=== PATIENT | female | born 1980 | race Caucasian/White ===

== ENCOUNTER 2016-09-29 12:42 | Emergency (ER) | payer OTHER ==
--- NOTE | 2016-09-29 12:55 | ERPHSYRPT ---
- History of Present Illness Historian: patient Exam Limitations: no limitations Patient Subjective Stated Complaint: "i started having cp about 1 hr ago that comes and goes. it feels like a pressure in my chest. i felt like i was getting a migraine on my way here." Triage Nursing Assessment: aox3, breathing easy unlabored,skin pink warm dry, steady gait, able to speak in cmoplete setences Physician History: Patient started to have migraine headache earlier this morning felt kind of weak and dizzy with some photophobia and that work started to have some intermittent sharp chest pain that went away and then had return photophobia and intermittent scotoma on the right consistent with her previous history of migraine headaches. Some mild nausea no vomiting. Did not take any of her migraine medication at this time but did take migraine medicine 5 days ago. She has had complete neurologic workup for migraines in the past. Has no history of cardiac disease hypertension DVT pulmonary embolism and had no shortness of breath with the associated chest pain which is totally resolved at this time. No recent chest injuries. Timing/Duration: today Activities at Onset: none Quality: sharpness, stabbing Location: central Chest Pain Radiation: no radiation Severity of Pain-Max: moderate Severity of Pain-Current: none Modifying Factors: Improves With: nothing Associated Symptoms: nausea Prior Chest Pain/Cardiac Workup: no prior chest pain, no prior cardiac workup Nitro Today/Relief: no nitro taken today Aspirin Treatment Today: 81 mg x 4, provided by ED Allergies/Adverse Reactions: No Known Drug Allergies Allergy (Verified 09/29/16 12:50) Home Medications: Rizatriptan Benzoate [Maxalt Pad Extraction Tender] 10 mg PO PRN 10/07/13 [History] Hx Tetanus, Diphtheria Vaccination/Date Given: No Hx Influenza Vaccination/Date Given: Yes (2012) Hx Pneumococcal Vaccination/Date Given: No Immunizations Up to Date: Yes - Review of Systems Constitutional: No Symptoms Eyes: Photophobia Ears, Nose, & Throat: No Symptoms Respiratory: No Symptoms Cardiac: No Symptoms Abdominal/Gastrointestinal: Nausea Genitourinary Symptoms: No Symptoms Musculoskeletal: No Symptoms Skin: No Symptoms Neurological: Headache, Lethargy Psychological: Anxiety, No Suicidal Ideations, No Homicidal Ideations Endocrine: No Symptoms Hematologic/Lymphatic: No Symptoms Immunological/Allergic: No Symptoms All Other Systems: Reviewed and Negative - Past Medical History Pertinent Past Medical History: Yes Neurological History: Migraines Musculoskeletal History: Fibromyalgia Other Medical History: OCCIPATAL NEURALGA - Past Surgical History Past Surgical History: Yes Female Surgical History: Other Other Surgical History: Ablasion - Social History Smoking Status: Never smoker Exposure to second hand smoke: No Drug Use: none Patient Lives Alone: No - Female History Hx Now: No - Nursing Vital Signs Pain Intensity: 0 - Physical Exam General Appearance: mild distress, alert, anxiety Eye Exam: PERRL/EOMI Ears, Nose, Throat Exam: TMs normal, pharynx normal, other (palpable tenderness over the right frontal temporal area reproducing pain syndrome) Neck Exam: normal inspection, non-tender, supple, full range of motion Respiratory Exam: normal breath sounds, lungs clear, No chest tenderness Cardiovascular Exam: regular rate/rhythm, normal heart sounds, normal peripheral pulses Gastrointestinal/Abdomen Exam: soft, normal bowel sounds, tenderness, distention , No guarding, No ecchymosis, No pulsatile mass, No rebound, No hernia, No hepatomegaly, No organomegaly Pelvic Exam: not done Rectal Exam: deferred Back Exam: normal inspection Extremity Exam: normal inspection, normal range of motion Neurologic Exam: alert, oriented x 3, cooperative, tools developer II-XII nml as tested Skin Exam: normal color, warm Lymphatic Exam: No adenopathy SpO2 Interpretation: normal Oxygen Delivery: Room Air - Course Nursing assessment & vital signs reviewed: Yes EKG Interpreted by Me: RATE (71), Sinus Rhythm, NORMAL AXIS, NORMAL INTERVALS, NORMAL QRS, Non-specific ST Changes (flattening in lead 3 and inverted Twave IN V1 otherwiseno significant ST-T wave changes.), Other (no comparison EKG available probable normal EKG) Ordered Tests: Active Orders 24 hr Category Date Time Status Clinical Athletic Instructor STAT Care 09/29/16 13:00 Active EKG-ER Only STAT Care 09/29/16 13:00 Active IV Insertion STAT Care 09/29/16 13:00 Active Pulse Oximetry (ED) STAT Care 09/29/16 13:00 Active CBC W DIFF Stat Lab 09/29/16 12:50 Completed CMP Stat Lab 09/29/16 12:50 Completed HCG QUALITATIVE,SERUM Stat Lab 09/29/16 12:50 Completed MAGNESIUM Stat Lab 09/29/16 12:50 Completed TROPONIN Stat Lab 09/29/16 12:50 Completed Medication Summary Discontinued Medications Generic Name Dose Route Start Last Admin Trade Name Seth PRN Reason Stop Dose Admin Aspirin 324 mg 09/29/16 13:00 09/29/16 13:13 Baby Aspirin 81 Mg Chew PO 09/29/16 13:01 324 mg STAT ONE Administration Aspirin Confirm 09/29/16 13:09 Baby Aspirin 81 Mg Chew Administered 09/29/16 13:10 Dose 324 mg .ROUTE .STK-MED ONE Diphenhydramine HCl 25 mg 09/29/16 13:01 09/29/16 13:12 Benadryl 50 Mg/Ml IV 09/29/16 13:02 25 mg STAT ONE Administration Diphenhydramine HCl Confirm 09/29/16 13:09 Benadryl 50 Mg/Ml Administered 09/29/16 13:10 Dose 50 mg .ROUTE .STK-MED ONE Sodium Chloride 1,000 mls @ 999 mls/hr 09/29/16 13:00 09/29/16 13:13 Sodium Chloride 0.9% 1000 Ml IV 09/29/16 14:00 999 mls/hr .Q1H1M STA Administration Sodium Chloride Confirm 09/29/16 13:10 Sodium Chloride 0.9% 1000 Ml Administered 09/29/16 13:11 Dose 1,000 mls @ ud .ROUTE .STK-MED ONE Ketorolac Tromethamine 30 mg 09/29/16 13:55 09/29/16 14:09 Toradol 30 Mg Injection IM 09/29/16 13:56 Not Given STAT ONE Ketorolac Tromethamine 30 mg 09/29/16 14:09 09/29/16 14:10 Toradol 30 Mg Injection IV 09/29/16 14:10 30 mg STAT ONE Administration Ketorolac Tromethamine Confirm 09/29/16 14:07 Toradol 30 Mg Injection Administered 09/29/16 14:08 Dose 30 mg .ROUTE .STK-MED ONE Ondansetron HCl 4 mg 09/29/16 13:01 09/29/16 13:13 Zofran 4 Mg/2 Ml Vial IV 09/29/16 13:02 4 mg STAT ONE Administration Ondansetron HCl Confirm 09/29/16 13:09 Zofran 4 Mg/2 Ml Vial Administered 09/29/16 13:10 Dose 4 mg .ROUTE .STK-MED ONE Sumatriptan Succinate 6 mg 09/29/16 14:30 09/29/16 15:05 Imitrex 6 Mg/0.5 Ml SQ 09/29/16 14:31 6 mg STAT STA Administration Sumatriptan Succinate Confirm 09/29/16 15:04 Imitrex 6 Mg/0.5 Ml Administered 09/29/16 15:05 Dose 6 mg SQ .STK-MED ONE Lab/Rad Data: Laboratory Result Diagrams 09/29/16 12:50 09/29/16 12:50 Laboratory Results 09/29/16 09/29/16 09/29/16 Range/Units 12:50 12:50 12:50 WBC 7.5 (4.0-10.5) K/mm3 RBC 4.23 (4.1-5.4) M/mm3 Hgb 13.1 (12.0-16.0) gm/dl Hct 39.1 (35-47) % MCV 92.4 (78-100) fl MCH 31.0 (26-32) pg MCHC 33.5 (32-36) g/dl RDW 12.7 (11.5-14.0) % Plt Count 249 (150-450) K/mm3 MPV 10.1 H (6-9.5) fl Gran % 47.2 (36.0-66.0) % Lymphocytes % 39.0 (24.0-44.0) % Monocytes % 12.4 H (0.0-12.0) % Eosinophils % 1.1 (0.00-5.0) % Basophils % 0.3 (0.0-0.4) % Basophils # 0.02 (0-0.4) Sodium 141 (136-145) mEq/L Potassium 3.9 (3.5-5.1) mEq/L Chloride 104 (98-107) mEq/L Carbon Dioxide 26.4 (21-32) mEq/L Anion Gap 14.2 (5-15) MEQ/L BUN 11 (9-20) mg/dL Creatinine 0.99 (0.55-1.30) mg/dl Estimated GFR > 60 ML/MIN Glucose 83 (70-110) MG/DL Calcium 9.1 (8.5-10.1) mg/dL Magnesium 1.8 (1.8-2.4) mg/dL Total Bilirubin 0.4 (0.2-1.0) mg/dL AST 19 (15-37) U/L ALT 21 (12-78) U/L Alkaline Phosphatase 70 (46-116) U/L Troponin I < 0.017 (0.000-0.056) ng/ml Serum Total Protein 7.7 (6.4-8.2) gm/dL Albumin 4.0 (3.4-5.0) g/dL Serum , Qual NEGATIVE (Negative) - Progress Progress: improved Air Movement: good Progress Note: 09/29/16 15:38Patient with no further chest pain starting prior to ER admission. Workup is negative at this time. Patient had signs and symptoms of her severe migraine cephalgia which has been bothering her over the past several weeks last of which was 5 days ago. Patient was given a dose of Imitrex subcutaneous and all of her headache and symptoms are now gone. Discharged at this time in stable condition with instructions for follow-up with medical provider as needed and/or return to emergency room. Blood Culture(s) Obtained: No Antibiotics given: No Counseled pt/family regarding: lab results, diagnosis, need for follow-up - Departure Time of Disposition: 15:40 Departure Disposition: Home Clinical Impression: Nonspecific chest pain Migraine Qualifiers: Migraine type: unspecified Status migrainosus presence: without status migrainosus Intractability: not intractable Qualified Code(s): G43.909 - Migraine, unspecified, not intractable, without status migrainosus Condition: Stable Critical Care Time: No Referrals: RENATE CHOPRA [Primary Care Provider] - 09/30/16 Instructions: Atypical Chest Pain, Migraine, Chest Pain Additional Instructions: Rest in dark room remainder of the evening with light diet and continue regular medications. No work today or tomorrow. Important to follow-up with Dr. Renate Chopra tomorrow for recheck and possible chest pain workup as necessary. Return to emergency room for severe uncontrolled chest pain shortness of breath uncontrolled nausea vomiting headache fever chills or any significant concerns or issues.
[2016-09-29] MEDS ORDERED: Sodium Chloride 0.9% 1000 ML 1,000 ML IV STA (13:00)
[2016-09-29] MEDS ORDERED: BABY ASPIRIN 81 MG CHEW PO ONE (13:00)
[2016-09-29] MEDS ORDERED: Zofran 4 MG/2 ML VIAL IV ONE (13:01)
[2016-09-29] MEDS ORDERED: BENADRYL 50 MG/ML IV ONE (13:01)
[2016-09-29] MEDS ORDERED: BABY ASPIRIN 81 MG CHEW ONE (13:09)
[2016-09-29] MEDS ORDERED: BENADRYL 50 MG/ML ONE (13:09)
[2016-09-29] MEDS ORDERED: Zofran 4 MG/2 ML VIAL ONE (13:09)
[2016-09-29] MEDS ORDERED: Sodium Chloride 0.9% 1000 ML 1,000 ML ONE (13:10)
[2016-09-29 13:30] LABS: BASOPHIL % 0.3 % (0.0-0.4); Eosinophil % 1.1 % (0.00-5.0); Granulocytes % 47.2 % (36.0-66.0); Mean Cell Volume 92.4 fl (78-100); Mean Platelet Volume 10.1 fl (6-9.5); Monocytes % 12.4 % (0.0-12.0); Platelet Count 249 K/mm3 (150-450); Red Blood Count 4.23 M/mm3 (4.1-5.4); Red Cell Distribution Width 12.7 % (11.5-14.0); White Blood Count 7.5 K/mm3 (4.0-10.5)
[2016-09-29 13:44] LABS: ALKALINE PHOSPHATASE 70 U/L (46-116); ANION GAP 14.2 MEQ/L (5-15); BILIRUBIN,TOTAL 0.4 mg/dL (0.2-1.0); BLOOD UREA NITROGEN 11 mg/dL (9-20); CHLORIDE 104 mEq/L (98-107); Carbon Dioxide 26.4 mEq/L (21-32); Glucose 83 MG/DL (70-110); MAGNESIUM 1.8 mg/dL (1.8-2.4); Potassium 3.9 mEq/L (3.5-5.1); SGOT/AST 19 U/L (15-37); SGPT/ALT 21 U/L (12-78); SODIUM 141 mEq/L (136-145); Total Protein 7.7 gm/dL (6.4-8.2)
[2016-09-29 13:45] LABS: TROPONIN < 0.017 ng/ml (0.000-0.056)
[2016-09-29] MEDS ORDERED: TORAdol 30 mg Injection IM ONE (13:55)
[2016-09-29] MEDS ORDERED: TORAdol 30 mg Injection ONE (14:07)
[2016-09-29] MEDS ORDERED: TORAdol 30 mg Injection IV ONE (14:09)
[2016-09-29] MEDS ORDERED: Imitrex 6 MG/0.5 ML SQ STA (14:30)
[2016-09-29] MEDS ORDERED: Imitrex 6 MG/0.5 ML SQ ONE (15:04)
[2016-09-29 16:10] VITALS: BP 104/70; PULSE 67; O2SAT 100
== END 2016-09-29 16:10 | disposition home or self-care (01) ==
LOC: ED 12:42
DX: G43.909 Migraine, unspecified, not intractable, without status migrainosus (principal); R07.89 Other chest pain; R11.0 Nausea
CPT/HCPCS: 36000; 36415; 80053; 83735; 84484; 84703; 85025; 93005; 93041; 96360; 96372; 96374; 96375; 99284; J1200; J1885; J2405; J3030